=== PATIENT | female | born 2000 ===

== ENCOUNTER 2022-07-15 15:57 | Outpatient (CLI) | payer OTHER | END 2022-07-15 16:52 | disposition home or self-care (01) | LOC: PRENATAL 15:57 | PROVIDERS: ATTEND Obstetrics & Gynecology Maternal & Fetal Medicine | DX: O35.0XX0 Maternal care for (suspected) central nervous system malformation in fetus, not applicable or unspecified (principal); O35.3XX0 Maternal care for (suspected) damage to fetus from viral disease in mother, not applicable or unspecified; Z3A.22 22 weeks gestation of pregnancy ==

== ENCOUNTER 2022-09-24 12:50 | Outpatient (CLI) | payer OTHER | END 2022-09-24 14:00 | disposition home or self-care (01) | LOC: PRENATAL 12:50 | PROVIDERS: ATTEND Obstetrics & Gynecology Maternal & Fetal Medicine | DX: O26.849 Uterine size-date discrepancy, unspecified trimester (principal); O36.8199 Decreased fetal movements, unspecified trimester, other fetus; O35.9XX0 Maternal care for (suspected) fetal abnormality and damage, unspecified, not applicable or unspecified; Z3A.32 32 weeks gestation of pregnancy ==